=== PATIENT | male | born 1965 | race Caucasian/White ===

== ENCOUNTER 2016-10-22 18:09 | Emergency (ER) | payer OTHER ==
[2016-10-22] MEDS ORDERED: ACETAMINOPHEN 500 MG TAB PO ONE (18:44)
--- NOTE | 2016-10-22 18:49 | EDPHY ---
H & P Stated Complaint: cough, ears clogged, nausea, fever 103 at home Time Seen by Provider: 10/22/16 18:49 - Personal History Current Tetanus Diphtheria and Acellular Pertussis (TDAP): Yes - Medical/Surgical History Hx Asthma: No Hx Chronic Respiratory Disease: No Hx Diabetes: No Hx Cardiac Disease: No Hx Renal Disease: No Hx Cirrhosis: No Hx Alcoholism: No Hx HIV/AIDS: No Hx Splenectomy or Spleen Trauma: No Other PMH: hypotension, pneumopthorax - Social History Smoking Status: Never smoked Constitutional: Initial Vital Signs Temperature (C) 39.3 C H 10/22/16 18:20 Heart Rate 118 H 10/22/16 18:20 Respiratory Rate 18 10/22/16 18:20 Blood Pressure 117/93 H 10/22/16 18:20 O2 Sat (%) 92 10/22/16 18:20 O2 Delivery Mode Room Air Allergies/Adverse Reactions: hydrocodone Allergy (Verified 10/22/16 18:20) Home Medications: Medication Instructions Recorded AZITHROMYCIN [Z-PACK] 250 mg PO DAILY #1 packet 10/22/16 Albuterol [Proventil Inhaler] 1 - 2 puffs IH Q4 #1 mdi 10/22/16 oxyCODONE IR [Oxycodone Ir (*)] 5 - 10 mg PO Q6 PRN #20 tab 10/22/16 predniSONE 60 mg PO DAILY #3 tab 10/22/16 Medical Decision Making ED Course/Re-evaluation: CHIEF COMPLAINT: Multiple complaints HISTORY OF PRESENT ILLNESS: This patient is a 51 year old male who presents to the Emergency Department complaining of high fever (103F) with chills, congestion headache, right-sided ear pain, and nonproductive cough beginning on Friday. He also complains of mild nausea increasing over the past 24 hours. He has not identified any alleviating or exacerbating factors for his symptoms. He denies sore throat or urinary complaints. Medical history includes pneumothorax in 2009. REVIEW OF SYSTEMS: A 10 point review of systems was performed and is negative with the exception of the elements mentioned in the history of present illness. PHYSICAL EXAM: HR 118, BP 117/93, O2 Sat 92%, RR 18. Temp noted at 39.3C. General Appearance: Alert, well hydrated, appropriate, and non-toxic appearing. Head: Atraumatic without scalp tenderness or obvious injury Eyes: Pupils equal, round, reactive to light and accommodation, EOMI, no trauma , no injection. Ears: Right ear: Bulging drum and erythematous TM with no perforation. Left ear is clear. Nose: Atraumatic, no rhinorrhea, clear. Throat: There is no erythema or exudates, no lesions, normal tonsils, mucus membranes moist. Neck: Supple, 2+ carotid upstroke, nontender, no lymphadenopathy. Respiratory: Coarse rhonchi throughout. No retractions, no distress, no wheezes , and no accessory muscle use. Lungs are clear to auscultation bilaterally. Cardiovascular: Regular rate and rhythm, no murmurs, rubs, or gallops. Bilateral carotid, radial, dorsalis pedis, and posterior tibial pulses intact. Good capillary refill all extremities. Gastrointestinal: Abdomen is soft, nontender, non-distended, no masses, no rebound, no guarding, no peritoneal signs. Musculoskeletal: Normal active ROM of all extremities, atraumatic. Neurological: Alert, appropriate, and interactive. The patient has normal DTRs and non-focal cranial nerves, motor, sensory, and cerebellar exam. Skin: No rashes, good turgor, no nodules on palpation. Past medical history: Hypotension, pneumothorax. Past surgical history: Denies. Family history: Non-contributory. Social history: , at bedside. DIFFERENTIAL DIAGNOSIS: The differential diagnosis for the patient's fever included but was not limited to pneumonia, urinary tract infection, viral syndrome, meningitis, and sepsis. MEDICAL DECISION MAKING: This normally healthy 51 year old male presents complaining of ear pain, congestion, and fever beginning on Friday. Exam is significant for right- sided otitis media and diffuse rhonchi suggestive of bronchitis. Flu screen obtained and is negative. I discussed this with the patient as well as the following treatment plan; he is agreeable to this. The patient will be discharged home in good condition with albuterol inhaler and Percocet for cough. He will be started on course of azithromycin to treat otitis media. He is given customary return precautions and a referral to the outpatient PCP. - Data Points Laboratory Results: 10/22/16 18:45 Influenza Typ A,B (DFA) NEGATIVE FOR FLU (NEGATIVE) Medications Given: Discontinued Medications Acetaminophen (Tylenol) 1,000 mg PO EDNOW ONE Stop: 10/22/16 18:45 Last Admin: 10/22/16 18:50 Dose: 1,000 mg Departure - Departure Disposition: Home, Routine, Self-Care Clinical Impression: Bronchitis Otitis media Qualifiers: Otitis media type: unspecified Laterality: right Chronicity: unspecified Qualified Code(s): H66.91 - Otitis media, unspecified, right ear Condition: Good Instructions: Otitis Media (ED), Acute Bronchitis (ED) Additional Instructions: 1. Take the full course of antibiotics as prescribed. Take 60mg Prednisone daily as prescribed. 2. Use Percocet as directed for your cough. 3. Use the albuterol metered dose inhaler as directed to suppress your cough. 4. Take 600mg Tylenol every 4-6 hours for fever. 5. Follow-up with your primary care provider in 3-5 days if your symptoms have not entirely resolved at that time. 6. Return to the Emergency Department with worsening headache, uncontrollable fever, coughing up blood or difficulty breathing, or other serious concerns. Referrals: Yamilet Quintero MD [Medical Doctor] - As per Instructions Stand Alone Forms: Work Excuse Prescriptions: Albuterol [Proventil Inhaler] 1 - 2 puffs IH Q4 #1 mdi AZITHROMYCIN [Z-PACK] 250 mg PO DAILY #1 packet oxyCODONE IR [Oxycodone Ir (*)] 5 - 10 mg PO Q6 PRN #20 tab PRN Reason: Pain, Severe predniSONE 60 mg PO DAILY #3 tab Report Scribed for: Cuong Guthrie Report Scribed by: Kenisha Cooper Date of Report: 10/22/16 Time of Report: 18:52
[2016-10-22] MEDS ORDERED: IBUPROFEN 600 MG TAB PO ONE ×2 (19:12→19:13)
[2016-10-22 19:38] VITALS: BP 128/85; PULSE 117; RESP 16; TEMP 101.5; O2SAT 91
== END 2016-10-22 19:38 | disposition home or self-care (01) ==
DX: J20.9 Acute bronchitis, unspecified (principal); H66.91 Otitis media, unspecified, right ear